=== PATIENT | male | born 1945 | race Caucasian/White ===

== ENCOUNTER 2023-11-10 07:22 | Emergency (ER) | payer MEDICARE ==
[~2023-11-10] VITALS: Ht 167.6 cm; Wt 73.0 kg
[2023-11-10] MEDS: IV NS 0.9% 500 ML BAG IV ONE (07:45)
[2023-11-10 07:57] LABS: BASOPHILS % (AUTO) 0.8 % (0.0-2.0); EOSINOPHILS # (AUTO) 0.5 K/uL (0.0-0.7); EOSINOPHILS % (AUTO) 7.9 % (0.0-6.0); HEMATOCRIT 45 % (39-51); HEMOGLOBIN 14.9 g/dL (13.5-17.5); LYMPHOCYTES # (AUTO) 1.1 K/uL (0.8-4.8); MEAN CORPUSCULAR HEMOGLOBIN 31 PG (26.0-33.0); MEAN CORPUSCULAR HGB CONC 33 g/dl (31.0-36.0); MEAN CORPUSCULAR VOLUME 92 fL (80-96); MONOCYTES # (AUTO) 0.5 K/uL (0.1-1.30); MONOCYTES % (AUTO) 8.8 % (2.0-12.0); NEUTROPHILS # (AUTO) 3.9 K/uL (1.8-8.9); NEUTROPHILS % (AUTO) 64.5 % (43.0-81.0); PLATELET COUNT (AUTO) 181 K/uL (150-450); RED BLOOD CELL COUNT(AUTO) 4.87 MIL/uL (4.5-6.0); RED CELL DISTRIBUTION WIDTH 13.1 % (11.5-15.0); WHITE BLOOD COUNT (AUTO) 6.1 K/uL (4.3-11.0)
[2023-11-10 08:11] LABS: CARBON DIOXIDE 28 mmol/L (21-32); CHLORIDE 105 mmol/L (98-107); CREATININE 1.2 mg/dL (0.6-1.3); GLUCOSE 124 mg/dL (74-106); POTASSIUM 4.7 mmol/L (3.5-5.1); SODIUM SERUM 141 mmol/L (136-145); UREA NITROGEN, BLOOD 14 mg/dL (7-18)
[2023-11-10 08:54] VITALS: BP 134/76; TEMP 98.1; O2SAT 99
== END 2023-11-10 08:57 | disposition home or self-care (01) ==
LOC: ER 07:35
DX: R55 Syncope and collapse (principal); Z60.2 Problems related to living alone
CPT/HCPCS: 99284; 93005 ×2; 85025; 80048; 36415; 84484; J7040